=== PATIENT | male | born 1970 | race Two or more races ===

== ENCOUNTER 2023-03-19 09:02 | Inpatient (IN) | payer MEDICAID, OTHER ==
[~2023-03-19] VITALS: Ht 165.1 cm; Wt 93.0 kg
[2023-03-19 09:32] LABS: Urine Bacteria NONE SEEN /hpf (None Seen); Urine Blood Negative /uL (Negative); Urine Clarity Clear (Clear); Urine Mucus FEW (None Seen); Urine Protein, UAD Negative (Negative); Urine Specific Gravity 1.016 (1.001-1.035); Urine Urobilinogen Normal (Negative); Urine WBC 1 /hpf (0 - 3)
[2023-03-19 09:33] LABS: Urine Color Straw (Yellow)
[2023-03-19 10:12] LABS: Basophils # (auto) 0 10 ^3/uL (0-0.2); Basophils % (auto) 0.5 % (0.0-2.0); Eosinophils # (auto) 0.2 10 ^3/uL (0-0.8); Eosinophils % (auto) 3.1 % (0.0-7.0); Hematocrit 44.8 % (41.0-53.0); Lymphocytes # (auto) 2.3 10 ^3/uL (0.4-5.4); Lymphocytes % (auto) 32.4 % (10.0-50.0); Mean Corpuscular Hemoglobin 33.3 pg (28.0-32.0); Mean Corpuscular Hgb Conc. 33.6 g/dL (32.0-36.0); Monocytes # (auto) 0.5 10 ^3/uL (0-1.3); Monocytes % (auto) 6.8 % (0.0-12.0); Neutrophils # (auto) 4.1 10 ^3/uL (1.6-8.6); Neutrophils % (auto) 57.2 % (37.0-80.0); Nucleated Red Blood Cells % 0.1 %; Red Blood Cells 4.52 10^6/uL (4.5-5.90); Red Cell Distribution Width 13.1 % (11.8-14.3); White Blood Cell 7.1 10^3/uL (4.4-10.8)
[2023-03-19 10:45] LABS: Alanine Aminotransferase 55 U/L (7-40); Albumin 4.3 g/dL (3.2-4.8); Alkaline Phosphatase 48 U/L (46-116); Anion Gap 6.6 (5-15); Aspartate Aminotransferase 15 U/L (13-40); BUN/Creatinine Ratio 14.9 (10.0-20.0); Bilirubin, Total 0.8 mg/dL (0.2-1.0); Blood Urea Nitrogen 11 mg/dL (9-23); Carbon Dioxide 26.4 mmol/L (20-30); Chloride 107 mmol/L (98-107); Glucose 135 mg/dL (74-106); Potassium 3.9 mmol/L (3.5-5.1); Sodium 140 mmol/L (136-145); Total Protein 7.1 g/dL (5.7-8.2)
[2023-03-19 12:46] VITALS: PULSE 78
[2023-03-19] MEDS ORDERED: SIMV20TA20 PO (13:13)
[2023-03-19] MEDS ORDERED: METF-1145 PO (13:13)
[2023-03-19] MEDS ORDERED: AMLO1TAB23 PO (13:13)
[2023-03-19] MEDS ORDERED: amLODIPine BESYLATE 5 MG TAB PO ONE (13:15)
[2023-03-19] MEDS ORDERED: ACETAMINOPHEN 325 MG TAB PO PRN (13:15)
[2023-03-19] MEDS ORDERED: LISINOPRIL 10 MG TAB PO ONE (13:15)
[2023-03-19] MEDS ORDERED: HCTZ 25 MG TAB PO ONE (13:15)
[2023-03-19] MEDS ORDERED: MORPHINE SULFATE INJ 2 MG/ml SYRG IV PRN (13:15)
[2023-03-19] MEDS ORDERED: NITROGLYCERIN 0.4 MG SL TAB SL PRN (13:15)
[2023-03-19] MEDS ORDERED: DEXTROSE (50%) 50ML SYRG IV PRN (13:15)
[2023-03-19] MEDS ORDERED: PANTOPRAZOLE 40 MG/10 ML VIAL INJ IV ONE (13:30)
[2023-03-19] MEDS ORDERED: ASPirin 325 MG TAB PO ONE ×2 (13:30→13:45)
[2023-03-19] MEDS ORDERED: hydrALAZINE HCL 20 MG/ML VL IV PRN (13:45)
[2023-03-19 15:06] VITALS: PULSE 59; RESP 20; O2SAT 98
[2023-03-19 15:23] LABS: INR 1.04 (0.9-1.15); Partial Thromboplastin Time 26.5 SEC (24.5-34.5); Prothrombin Time 10.9 sec (9.3-11.8)
[2023-03-19] MEDS: InsuLIN REG 1unit/0.01ml Soln (100units/ml) SC SCH ×2 (17:00→23:27)
[2023-03-19] MEDS: ACCU-CHEK COMFORT CURVE STRIP VI SCH ×2 (17:00→23:27)
[2023-03-19 19:35] VITALS: PULSE 74; RESP 24; O2SAT 94
[2023-03-19] MEDS ORDERED: ATORVASTATIN 20 MG TAB PO SCH (22:00)
[2023-03-19] MEDS: ATORVASTATIN 20 MG TAB PO SCH (23:28)
[2023-03-20] VITALS (7 sets, daily range): BP systolic 119–135; BP diastolic 70–85; PULSE 62–85; RESP 16–81; TEMP 98.2–98.4; O2SAT 97–99
[2023-03-20] MEDS: ACCU-CHEK COMFORT CURVE STRIP VI SCH ×4 (06:31→21:39)
[2023-03-20] MEDS: InsuLIN REG 1unit/0.01ml Soln (100units/ml) SC SCH ×4 (06:33→21:42)
[2023-03-20 07:33] LABS: Alanine Aminotransferase 50 U/L (7-40); Alkaline Phosphatase 51 U/L (46-116); Anion Gap 8.5 (5-15); Aspartate Aminotransferase 19 U/L (13-40); BUN/Creatinine Ratio 11.8 (10.0-20.0); Basophils # (auto) 0 10 ^3/uL (0-0.2); Basophils % (auto) 0.4 % (0.0-2.0); Blood Urea Nitrogen 10 mg/dL (9-23); Carbon Dioxide 26.5 mmol/L (20-30); Chloride 102 mmol/L (98-107); Eosinophils # (auto) 0.3 10 ^3/uL (0-0.8); Eosinophils % (auto) 3.9 % (0.0-7.0); Glucose 131 mg/dL (74-106); Hemoglobin 14.8 g/dL (13.5-17.5); LDL Cholesterol 71 mg/dL (< 100); Lymphocytes # (auto) 2.1 10 ^3/uL (0.4-5.4); Lymphocytes % (auto) 27.6 % (10.0-50.0); Mean Corpuscular Hemoglobin 33.7 pg (28.0-32.0); Mean Corpuscular Hgb Conc. 34.4 g/dL (32.0-36.0); Mean Corpuscular Volume 98.1 fL (80.0-100.0); Monocytes # (auto) 0.6 10 ^3/uL (0-1.3); Monocytes % (auto) 8.2 % (0.0-12.0); Neutrophils # (auto) 4.5 10 ^3/uL (1.6-8.6); Neutrophils % (auto) 59.9 % (37.0-80.0); Nucleated Red Blood Cells % 0.3 %; Potassium 3.4 mmol/L (3.5-5.1); Red Blood Cells 4.39 10^6/uL (4.5-5.90); Sodium 137 mmol/L (136-145); Triglycerides 168 mg/dL (< 150); White Blood Cell 7.5 10^3/uL (4.4-10.8)
[2023-03-20 07:34] LABS: Bilirubin, Total 1.1 mg/dL (0.2-1.0); Cholesterol 122 mg/dL (< 200); HDL Cholesterol 36 mg/dL (40-59); Total Protein 7.3 g/dL (5.7-8.2)
[2023-03-20 07:36] LABS: Albumin 4.2 g/dL (3.2-4.8)
[2023-03-20] MEDS ORDERED: ADENOSINE 76 MG in GIVE UN-DILUTED 0 ML IV STA (07:57)
[2023-03-20] MEDS ORDERED: ASPirin 81 mg TAB PO SCH (10:00)
[2023-03-20] MEDS: ASPirin 81 mg TAB PO SCH (11:30)
[2023-03-20] MEDS: PANTOPRAZOLE 40 MG TAB PO SCH (11:31)
[2023-03-20] MEDS: LISINOPRIL 10 MG TAB PO SCH (11:34)
[2023-03-20] MEDS: HCTZ 25 MG TAB PO SCH (11:43)
[2023-03-20] MEDS: amLODIPine BESYLATE 5 MG TAB PO SCH (12:08)
[2023-03-20] MEDS ORDERED: ALBUTEROL SULF 2.5 MG/0.5ML(0.5%) NEB SOLN ONE (14:42)
[2023-03-20] MEDS: ATORVASTATIN 20 MG TAB PO SCH (21:37)
[2023-03-21 04:57] VITALS: BP 104/73; PULSE 65; RESP 16; TEMP 98.4; O2SAT 99
[2023-03-21] MEDS: InsuLIN REG 1unit/0.01ml Soln (100units/ml) SC SCH ×4 (06:18→22:00)
[2023-03-21] MEDS: ACCU-CHEK COMFORT CURVE STRIP VI SCH ×4 (06:43→22:31)
[2023-03-21 08:00] VITALS: PULSE 59; O2SAT 0
[2023-03-21] MEDS: PANTOPRAZOLE 40 MG TAB PO SCH ×2 (08:55→20:57)
[2023-03-21] MEDS: amLODIPine BESYLATE 5 MG TAB PO SCH (08:55)
[2023-03-21] MEDS: LISINOPRIL 10 MG TAB PO SCH (08:55)
[2023-03-21] MEDS: ASPirin 81 mg TAB PO SCH (08:56)
[2023-03-21] MEDS: HCTZ 25 MG TAB PO SCH (08:56)
[2023-03-21 09:00] VITALS: BP 135/75; PULSE 74; RESP 16; TEMP 98.1; O2SAT 97
[2023-03-21] MEDS ORDERED: POTASSIUM EFFERVESENT TAB 25 MEQ PO ONE (10:45)
[2023-03-21 13:09] VITALS: BP 130/76; PULSE 71; RESP 16; TEMP 98; O2SAT 96
[2023-03-21 17:00] VITALS: BP 114/81; PULSE 66; RESP 16; TEMP 97.6; O2SAT 97
[2023-03-21] MEDS: SUCRALFATE 1 GM/10 ML ORAL SUSP PO SCH ×2 (17:14→20:56)
[2023-03-21 20:00] VITALS: PULSE 71; PULSE 78; RESP 78; O2SAT 98
[2023-03-21] MEDS: ATORVASTATIN 20 MG TAB PO SCH (20:57)
[2023-03-22 05:00] VITALS: BP 114/81; PULSE 67; RESP 18; TEMP 97.6; O2SAT 96
[2023-03-22] MEDS: SUCRALFATE 1 GM/10 ML ORAL SUSP PO SCH ×2 (06:24→12:38)
[2023-03-22] MEDS: InsuLIN REG 1unit/0.01ml Soln (100units/ml) SC SCH ×2 (06:24→11:30)
[2023-03-22] MEDS: ACCU-CHEK COMFORT CURVE STRIP VI SCH ×2 (06:24→12:38)
[2023-03-22 08:00] VITALS: PULSE 72
[2023-03-22 08:18] VITALS: O2SAT 0
[2023-03-22 09:00] VITALS: BP 114/45; PULSE 68; RESP 17; TEMP 98.2; O2SAT 94
[2023-03-22] MEDS: ASPirin 81 mg TAB PO SCH (09:01)
[2023-03-22] MEDS: PANTOPRAZOLE 40 MG TAB PO SCH (09:02)
[2023-03-22] MEDS: LISINOPRIL 10 MG TAB PO SCH (09:02)
[2023-03-22] MEDS: HCTZ 25 MG TAB PO SCH (09:03)
[2023-03-22] MEDS: amLODIPine BESYLATE 5 MG TAB PO SCH (09:03)
[2023-03-22] MEDS ORDERED: PANT40T PO (11:02)
[2023-03-22] MEDS ORDERED: SUCR1TAB22 OR (11:02)
[2023-03-22 11:18] LABS: Hepatitis B Surface Antigen Negative (Negative)
[2023-03-22 11:40] LABS: Hepatitis C Antibody Negative (Negative)
[2023-03-22 13:00] VITALS: BP 115/64; PULSE 66; RESP 18; TEMP 98.2; O2SAT 95
[2023-03-22 17:00] VITALS: BP 98/65; PULSE 75; RESP 18; TEMP 98.2; O2SAT 96
== END 2023-03-22 17:10 | disposition home or self-care (01) | DRG 241 ==
LOC: ER 09:02 → TELE 13:07 → TELE-EAST 03-20 10:41
PROVIDERS: ADMIT Nurse Practitioner Family; ATTEND Nurse Practitioner Acute Care
DX: K29.70 Gastritis, unspecified, without bleeding (principal); E11.9 Type 2 diabetes mellitus without complications; I16.0 Hypertensive urgency; K20.90 Esophagitis, unspecified without bleeding; E66.01 Morbid (severe) obesity due to excess calories; E78.5 Hyperlipidemia, unspecified; I10 Essential (primary) hypertension; Z71.3 Dietary counseling and surveillance; Z87.891 Personal history of nicotine dependence; Z68.34 Body mass index [BMI] 34.0-34.9, adult; Z83.3 Family history of diabetes mellitus
CPT/HCPCS: 36415; 70450; 71045; 71250; 76705; 78452; 80053; 80061; 81001; 82962; 83036; 84443; 84484; 85025; 85610; 85730; 86803; 87340; 93005; 93017; 93306; 93886; 96374; C9113; G0378; J0153; J1815